=== PATIENT | male | born 1995 | race Caucasian/White ===

== ENCOUNTER 2017-04-17 03:42 | Emergency (ER) | payer OTHER ==
[2017-04-17 03:48] VITALS: BP 122/56
--- NOTE | 2017-04-17 04:57 | ER Document Report ---
ED General - General Chief Complaint: Breathing Difficulty Stated Complaint: COLD SYMPTOMS Time Seen by Provider: 04/17/17 04:31 TRAVEL OUTSIDE OF THE [place] IN LAST 30 DAYS: No - Related Data Allergies/Adverse Reactions: clarithromycin [From Biaxin] Allergy (Verified 04/17/17 03:43) Past Medical History - Social History Smoking Status: Unknown if Ever Smoked Family History: Reviewed & Not Pertinent Patient has suicidal ideation: No Patient has homicidal ideation: No Pulmonary Medical History: Reports: Hx Asthma Renal/ Medical History: Denies: Hx Peritoneal Dialysis GI Medical History: Reports: Hx Gastroesophageal Reflux Disease Past Surgical History: Reports: Hx Open Heart Surgery - ASD and VSD repair child choi - Immunizations Immunizations up to date: Yes Hx Diphtheria, Pertussis, Tetanus Vaccination: Yes Physical Exam - Vital signs Vitals: Temp Pulse Resp BP Pulse Ox 97.9 F 71 18 122/56 L 97 04/17/17 03:46 04/17/17 03:46 04/17/17 03:46 04/17/17 03:46 04/17/17 03:46 Course - Re-evaluation Re-evalutation: 04/17/17 04:55 Patient seen ambulating back to his room upon receiving the chart and going to the room patient had left multiple attempts to locate the patient however looks that patient eloped from the ER - Vital Signs Vital signs: Temp Pulse Resp BP Pulse Ox 97.9 F 71 18 122/56 L 97 04/17/17 03:46 04/17/17 03:46 04/17/17 03:46 04/17/17 03:46 04/17/17 03:46 Discharge - Discharge Disposition: ELOPED
== END 2017-04-17 04:56 | disposition left against medical advice (07) ==
LOC: ER 03:42
DX: J45.909 Unspecified asthma, uncomplicated (principal); Z53.20 Procedure and treatment not carried out because of patient's decision for unspecified reasons
CPT/HCPCS: 99281

== ENCOUNTER 2019-03-23 12:54 | Emergency (ER) | payer OTHER ==
[2019-03-23] MEDS ORDERED: GLUCAGON,HUMAN RECOMB 1 MG INJ IM ONE (14:19)
--- NOTE | 2019-03-23 14:28 | ER Document Report ---
ED Foreign Body - General Chief Complaint: Foreign Body Stated Complaint: BREATHING PROBLEMS Time Seen by Provider: 03/23/19 14:06 Primary Care Provider: CHATO HOLDER PA-C [Primary Care Provider] - Follow up as needed TRAVEL OUTSIDE OF THE [place] IN LAST 30 DAYS: No - HPI Notes: Patient is a 23-year-old male that presents to the emergency department for chief complaint of esophageal food impaction. 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 Since then he has had dysphasia. Patient states he is usually able to get food cleared if it gets stuck but he has been unable to clear this impaction. About an hour and a half prior to presentation he was eating steak and believes that is what is stuck. He states he is tolerating some of his oral secretions but has felt the need to spit and can feel his saliva accumulating. He denies any difficulty breathing. He does state he is currently on antibiotics for community-acquired pneumonia. He states from a pneumonia standpoint he has been feeling better and his congestion and cough have improved. Past Medical History: Negative Past Surgical History: Esophageal fistula repair, cardiac surgery unknown Social History: Denies drugs alcohol and tobacco Family History: Reviewed and noncontributory for presenting illness Allergies: Reviewed, see documented allergy list. REVIEW OF SYSTEMS: CONSTITUTIONAL : No fever No chills No diaphoresis No recent illness EENT: No vision changes congestion No sore throat CARDIOVASCULAR: No chest pain No palpitations RESPIRATORY: No shortness of breath cough No difficulty breathing GASTROINTESTINAL: No abdominal pain Difficulty swallowing No nausea No vomiting No diarrhea GENITOURINARY: No dysuria No hematuria No difficulty urinating MUSCULOSKELETAL: No back pain No leg pain No arm pain SKIN: No rashes No lesions LYMPHATIC: No swollen, enlarged glands. NEUROLOGICAL: No lightheadedness No headache No weakness No paresthesias PSYCHIATRIC: No anxiety No depression PHYSICAL EXAMINATION: Vital signs reviewed, nursing noted reviewed. GENERAL: Well-appearing, well-nourished and in no acute distress. HEAD: Atraumatic, normocephalic. EYES: Eyes appear normal, extraocular movements intact, sclera anicteric, conjunctiva are normal. ENT: nares patent, oropharynx clear without exudates. Moist mucous membranes. NECK: No crepitus, normal range of motion, supple without lymphadenopathy LUNGS: Breath sounds clear to auscultation bilaterally and equal. No wheezes rales or rhonchi. HEART: Regular rate and rhythm without murmurs ABDOMEN: Soft, nontender, normoactive bowel sounds. No rebound, guarding, or rigidity. No masses appreciated. EXTREMITIES: Nontender, good range of motion, no pitting or edema. NEUROLOGICAL: No focal neurological deficits. Moves all extremities spontaneously Motor and sensory grossly intact on exam. PSYCH: Normal mood, normal affect. SKIN: Warm, Dry, normal turgor, no rashes or lesions noted on exposed skin - Related Data Allergies/Adverse Reactions: clarithromycin [From Biaxin] Allergy (Verified 03/23/19 12:55) Past Medical History - Social History Smoking Status: Never Smoker Frequency of alcohol use: None Drug Abuse: None Family History: Reviewed & Not Pertinent Patient has suicidal ideation: No Patient has homicidal ideation: No Pulmonary Medical History: Reports: Hx Asthma Renal/ Medical History: Denies: Hx Peritoneal Dialysis GI Medical History: Reports: Hx Gastroesophageal Reflux Disease Past Surgical History: Reports: Hx Open Heart Surgery - ASD and VSD repair child choi - Immunizations Immunizations up to date: Yes Hx Diphtheria, Pertussis, Tetanus Vaccination: Yes Physical Exam - Vital signs Vitals: Temp Pulse Resp BP Pulse Ox 97.3 F 79 22 H 122/55 L 99 03/23/19 12:58 03/23/19 12:58 03/23/19 12:58 03/23/19 12:58 03/23/19 12:58 Course - Re-evaluation Re-evalutation: 03/23/19 14:27 Vitals reviewed. Nursing notes reviewed. Patient is well-appearing and in no respiratory distress. During my conversation with him he is tolerating his oral secretions. Patient will be given glucagon to help clear his food impaction. He was also given a dark cola to drink and attempt to clear the impaction. He is in no respiratory distress and I do not suspect aspiration. 03/23/19 14:53 Patient reevaluated and feels that the impaction has cleared. He is able to tolerate liquids and currently feels much better. He was encouraged to follow with GI to further evaluate his dysphasia as needed. - Vital Signs Vital signs: Temp Pulse Resp BP Pulse Ox 97.3 F 79 22 H 122/55 L 99 03/23/19 12:58 03/23/19 12:58 03/23/19 12:58 03/23/19 12:58 03/23/19 12:58 Discharge - Discharge Clinical Impression: Esophageal obstruction due to food impaction Condition: Stable Disposition: HOME, SELF-CARE Instructions: Esophageal Food Impaction ([facility]) Additional Instructions: Please return to the emergency department if you have any worsening, or concern of your symptoms. Please return to the emergency department if you develop chest pain, difficulty breathing, severe abdominal pain, or ongoing vomiting. Please follow-up with your primary care physician in 2-3 days and any other recommended physicians. If prescribed, take all medications as directed. If you have any questions or concerns do not hesitate to return the emergency department for evaluation. Referrals: CHATO HOLDER PA-C [Primary Care Provider] - Follow up as needed BLAINE GRAHAM MD [ACTIVE STAFF] - Follow up as needed
[2019-03-23 15:04] VITALS: BP 129/69
== END 2019-03-23 15:06 | disposition home or self-care (01) ==
LOC: ER 12:54
DX: T18.128A Food in esophagus causing other injury, initial encounter (principal); R13.10 Dysphagia, unspecified; Z98.890 Other specified postprocedural states; J45.909 Unspecified asthma, uncomplicated
CPT/HCPCS: 99283; 96372; J1610